=== PATIENT | female | born 1975 | race Caucasian/White ===

== ENCOUNTER 2018-06-03 03:06 | Emergency (ER) | payer OTHER ==
[~2018-06-03] VITALS: Wt 63.0 kg
[2018-06-03 03:13] VITALS: BP 139/60; PULSE 82; RESP 18
[2018-06-03] MEDS ORDERED: KETOROLAC 30 MG INJ IM STA (04:49)
--- NOTE | 2018-06-03 04:49 | ERD ---
ER Documentation Chief Complaint Chief Complaint L SHOULDER, UPPER ARM, NECK PAIN S/P FALL AT WORK HPI This is a 42-year-old female who presents emergency department with complaints of left shoulder pain, left-sided chest pain that started after falling at around 12 midnight. Patient stated that she was at work, tripped, fell, landed on her left shoulder. Reports pain to range of motion. LMP: 05/17/2018. A0. Denies headache, head injury, loss of consciousness, dizziness, neck pain, neck stiffness, throat pain, difficulty swallowing, difficulty breathing lying flat, back pain, abdominal pain, nausea, vomiting, constipation, diarrhea, urinary symptoms, or possibility being , loss of bowel and bladder control, trauma, injury, falls, difficulty walking due to pain, numbness or tingling sensation, calf pain, recent travel, recent major surgery in the last 3 weeks, calf pain, recent long travel, recent exposure to any illness, recent antibiotic use in the last 3 months, fever, chills, seizures. ROS All systems reviewed and are negative except as per history of present illness. Medications Home Meds Active Scripts Cyclobenzaprine Hcl* (Cyclobenzaprine Hcl*) 10 Mg Tablet, 10 MG PO TID PRN for MUSCLE SPASMS, #15 TAB Prov:PASILABAN,KOKIAR F 06/03/18 Ibuprofen* (Motrin*) 400 Mg Tab, 400 MG PO Q6H PRN for PAIN AND OR ELEVATED TEMP, #30 TAB Prov:PASILABAN,KOKIAR F 06/03/18 Physical Exam Vitals Vital Signs Date Temp Pulse Resp B/P (MAP) Pulse Ox O2 O2 Flow FiO2 Time Delivery Rate 06/03/18 97.9 82 18 139/60 100 03:13 (86) Physical Exam Const: No acute distress Head: Atraumatic. No signs of direct head injury. Normocephalic. Scalp is intact. Eyes: Normal Conjunctiva. ENT: Normal External Ears, Nose and Mouth. Neck: Full range of motion. No meningismus. Resp: Clear to auscultation bilaterally. Chest area: Mild left-sided chest tenderness with reproducing pain during range of motion of the T-spine. No c repitus. No signs of punctured lungs. Respirations even and unlabored. No accessory muscle use in breathing. Cardio: Regular rate and rhythm, no murmurs Abd: Soft, non tender, non distended. Normal bowel sounds. No abdominal tenderness. Skin: No petechiae or rashes Back: No midline or flank tenderness. C-spine/T-spine/L-spine and midline with good and full range of motion and is no swelling/bulging/point of tenderness. Ext: No cyanosis, or edema. Left shoulder: No obvious deformity. No swelling. Has full range of motion but with pain. Left clavicular area: No crepitus. No deformity. No discoloration. No tenderness. Left elbow/forearm/wrist/left humerus: Unremarkable./Hand are unremarkable. Left radial pulse is within normal limits. Capillary refills to left upper extremity are less than 2 seconds. Right upper extremity is unremarkable. Right clavicle is unremarkable. Has good and full function of bilateral hands. Capillary refills to right upper extremity are less than 2 seconds. No neurovascular deficit. Ambulatory with steady gait. Neur: Awake and alert. No neurological deficits. Psych: Normal Mood and Affect Results 24 hrs Laboratory Tests Test 06/03/18 05:02 POC Beta HCG, Qualitative NEGATIVE Current Medications Medications Dose Sig/Zhou Start Time Status Last (Trade) Ordered Route PRN Stop Time Admin Dose Reason Admin Ketorolac 30 mg ONCE STAT 06/03/18 DC 06/03/18 Tromethamine IM 04:49 05:08 (Toradol) 06/03/18 04:52 1 tab ONCE ONCE 06/03/18 DC 06/03/18 Acetaminophen PO 05:00 05:03 / 06/03/18 05:01 Hydrocodone Bitart ([place] (5/325)) Procedures/MDM Diagnostic tests: POC urine : Negative. Chest x-ray: No evidence for active cardia pulmonary disease. X-ray of the left shoulder: No evidence For acute fracture or dislocation or AC separation. Treatment: Toradol IM. [place] p.o. Re-evaluation: Denies shoulder pain, chest pain. No neurovascular deficit. No neurological deficits. Ambulatory with steady gait. Differential diagnosis I have low suspicion for septic joint, displaced fracture of the shoulder, severe AC separation, comminuted fracture, compartment syndrome. I have low suspicion for pneumothorax, hemothorax, rib fractures, punctured lungs. Final diagnosis: Chest wall contusion. Contusion of left shoulder. Prescription: Motrin. Flexeril. Follow-up with PCP in the next 24-48 hours. Come back here in the emergency department for any new symptoms or any worsening symptoms. All questions and concerns were answered. Patient and family members verbalized understanding and agreed with plan of care. Hemodynamically stable on discharge. Departure Diagnosis: Primary Impression: Contusion of left shoulder Additional Impression: Chest wall contusion Condition: Stable Additional Instructions: Follow-up with PCP in the next 24-48 hours. Come back here in the emergency department for any new symptoms or any worsening symptoms. DANIKA DEUTSCH Jun 03, 2018 04:49
[2018-06-03] MEDS ORDERED: HYDROCODONE/APAP (5/325) TAB PO ONE (05:00)
[2018-06-03] MEDS ORDERED: IBUP-1561 PO (06:31)
[2018-06-03] MEDS ORDERED: CYCL10TA7 PO (06:32)
== END 2018-06-03 06:46 | disposition home or self-care (01) ==
LOC: FTE 03:06
DX: S40.012A Contusion of left shoulder, initial encounter (principal); S20.212A Contusion of left front wall of thorax, initial encounter; W01.0XXA Fall on same level from slipping, tripping and stumbling without subsequent striking against object, initial encounter; Y92.89 Other specified places as the place of occurrence of the external cause
CPT/HCPCS: 71046; 73030; 81025; 96372; 99284; J1885